=== PATIENT | female | born 1965 | race Caucasian/White ===

== ENCOUNTER 2022-09-17 11:50 | Observation (INO) ==
[2022-09-17] MEDS ORDERED: CEFEPIME 2,000 MG/20 ML VIAL IV STA (12:18)
[2022-09-17] MEDS ORDERED: ACETAMINOPHEN 1,000 MG/100 ML VIAL IV STA (12:18)
--- NOTE | 2022-09-17 12:22 | Emergency Department Note ---
Impression & Plan SOB (shortness of breath), Cellulitis, Rigors, Fever, Hyponatremia ED Provider Note NAME: MALIHA PHAM AGE: 56 SEX: F : 1965 ARRIVES VIA: Ambulance INFORMANT: [Patient] ED PROVIDER(S): [Moustapha Zimmer MD] CHIEF COMPLAINT: Illness HISTORY OF PRESENT ILLNESS: The patient is a 56-year-old female with a previous history of left leg cellulitis. She is currently at [facility]. The patient noticed chills, fever, body aches and tiredness since yesterday. She has been using Tylenol. This morning, the patient noticed a rash on her right lower extremity. She was evaluated by the medical staff there and sent to our hospital for further work- up. Of note, there has been no injury to the right lower extremity, the patient denies any history of diabetes. PMHx/PSHx: See Below SOCIAL HISTORY: See Below. PHYSICAL EXAM: GENERAL: Patient is in no acute distress. Shivering. HEENT: No acute trauma, normocephalic atraumatic, mucous membranes moist, no nasal congestion. NECK: No stridor, no adenopathy, no meningismus, trachea is midline. LUNGS: Coarse breath sounds bilaterally, no respiratory distress, no wheeze, dry cough noted. HEART: Mildly tachycardic, regular rhythm, no murmurs. ABDOMEN: Soft, nontender, bowel sounds positive, no peritonitis. EXTREMITIES: No cyanosis. There is erythema and warmth to the right lower extremity involving both the anterior and posterior aspect. It does not extend past the knee. No drainage NEUROLOGIC: Oriented x 3, no acute motor or sensory deficits, no focal weakness. SKIN: No rash, no jaundice, no diaphoresis. DIFFERENTIAL DIAGNOSIS: Sepsis, UTI, pyelonephritis, pneumonia, metabolic abnormality, electrolyte abnormality, cellulitis, bacteremia, as well as other pathologies. EMERGENCY DEPARTMENT COURSE/PROCEDURES: Prior/Outside records reviewed: EMS records. [facility] records. ECG per my interpretation: Indication was potential sepsis. The ECG shows a normal sinus rhythm with a rate of 91. There is no ST elevation, no PVCs. The QTc is 437. Continuous Cardiac Monitoring per my interpretation: An order was placed for continuous cardiac monitoring. The monitor shows a rate of 89 with normal sinus rhythm. MEDICAL DECISION MAKING: There is no leukocytosis or concerning anemia. There is a normal platelet count. Sodium somewhat low at 129, no renal failure. Lactic acid level is not elevated making severe sepsis less likely. No worrisome liver enzyme elevation. Procalcitonin level was elevated consistent with potential bacterial infection. ECG showed a normal sinus rhythm, and no obvious ST elevation. Cardiac enzyme testing x1 was not consistent with acute cardiac injury. Urinalysis showed contamination, no infection. COVID, influenza and RSV test were negative. Chest film did not show significant CHF per my review, there was no pneumonia. On exam, the patient did have a right lower extremity cellulitis. She was febrile and tachycardic. Patient received IV Tylenol, IV cefepime, IV saline--2 L were given. The patient is improved. She is much more comfortable. Her heart rate has decreased. She is no longer shaking with chills. I do think the cellulitis on exam has caused her presentation. I am concerned about the potential of bacteremia. Given her findings and presentation, I do think a hospital stay would be warranted. I spoke with the patient and case management, the on-call hospitalist was consulted. DISPOSITION: Patient's findings and presentation warrant a hospital stay. Past Med/Surg History Medical History Cellulitis Renal cancer Surgical History (Updated 09/17/22 @ 16:07 by Pool Lazcano MD) History of right nephrectomy Social History Smoking Status: Former smoker Tobacco Type: Cigarettes Feels Safe at Home: Yes Allergies Allergies Allergy/AdvReac Type Severity Reaction Status Date / Time No Known Allergies Allergy Verified 09/17/22 15:14 Home Meds Home Medications Medication Instructions Recorded Confirmed No Known Home Medications 09/17/22 09/17/22 Results & Data (ED) Vital Signs Vital Signs - 24 hr 09/17/22 11:35 09/17/22 11:35 09/17/22 12:18 Temperature 39.4 C H 39.4 C H Temperature Source Oral Oral Pulse Rate 105 H 104 H Pulse Rate from SpO2 Sensor Pulse Rhythm Regular Respiratory Rate 28 H 28 H Respiratory Effort / Characteristics Short of Breath Respiratory Depth Normal Respiratory Pattern Regular Blood Pressure 182/106 H Blood Pressure Mean 131 Pulse Oximetry 95 96 Oxygen Delivery Method Room Air Room Air Sepsis Recent Fever Within 48 Hours Yes Sepsis New/Unexplained Change in Mental Status No Sepsis Action Taken by Nursing Previously Notified 09/17/22 12:00 09/17/22 12:30 09/17/22 13:00 Temperature Temperature Source Pulse Rate 102 H 105 H 98 H Pulse Rate from SpO2 Sensor 100 H 105 H 99 H Pulse Rhythm Respiratory Rate 22 21 30 H Respiratory Effort / Characteristics Respiratory Depth Respiratory Pattern Blood Pressure Blood Pressure Mean Pulse Oximetry 96 94 96 Oxygen Delivery Method Sepsis Recent Fever Within 48 Hours Sepsis New/Unexplained Change in Mental Status Sepsis Action Taken by Nursing 09/17/22 13:09 09/17/22 13:09 09/17/22 13:30 Temperature Temperature Source Pulse Rate 101 H Pulse Rate from SpO2 Sensor 101 H Pulse Rhythm Respiratory Rate 31 H Respiratory Effort / Characteristics Respiratory Depth Respiratory Pattern Blood Pressure 133/70 124/72 Blood Pressure Mean 91 89 Pulse Oximetry 94 Oxygen Delivery Method Sepsis Recent Fever Within 48 Hours Sepsis New/Unexplained Change in Mental Status Sepsis Action Taken by Nursing 09/17/22 13:30 09/17/22 14:20 09/17/22 14:04 Temperature 37.2 C Temperature Source Oral Pulse Rate 93 H 91 H Pulse Rate from SpO2 Sensor 94 H 93 H Pulse Rhythm Respiratory Rate 23 26 H Respiratory Effort / Characteristics Respiratory Depth Respiratory Pattern Blood Pressure 124/72 Blood Pressure Mean 89 Pulse Oximetry 94 96 Oxygen Delivery Method Sepsis Recent Fever Within 48 Hours Sepsis New/Unexplained Change in Mental Status Sepsis Action Taken by Custodial Medications Current Medication List: was personally reviewed by me Laboratory Data Attestation: I reviewed the patient's lab results. 09/17/22 12:19 09/17/22 12:19 Lab Results 09/17/22 09/17/22 09/17/22 Range/Units 12:19 12:19 12:19 WBC 7.73 (4.8-10.8) K/ul RBC 4.25 (4.20-5.40) M/uL Hgb 12.1 (12.0-16.0) g/dl Hct 35.6 L (37.0-47.0) % MCV 83.8 (80.0-100.0) fL MCH 28.5 (25.0-34.0) pg MCHC 34.0 (32.0-36.0) g/dL RDW Std Deviation 41.3 (36.4-46.3) fL RDW Coeff of Diaz 13.4 (11.5-14.5) % Plt Count 159 (130-400) K/uL MPV 11.7 (9.4-12.4) fL Immature Gran % (Auto) 0.6 % Neut % (Auto) 86.1 % Lymph % (Auto) 9.6 % Clare % (Auto) 3.6 % Eos % (Auto) 0.0 % Baso % (Auto) 0.1 % Neut # (Auto) 6.65 H (1.40-6.50) K/uL Lymph # (Auto) 0.74 L (1.2-3.4) K/uL Clare # (Auto) 0.28 (0.11-0.59) K/uL Eos # (Auto) 0.00 (0-0.50) K/uL Baso # (Auto) 0.01 (0-0.2) K/uL Immature Gran # (Auto) 0.05 (0.01-0.20) K/uL Sodium 129 L (136-145) mmol/L Potassium 4.1 (3.5-5.1) mmol/L Chloride 98 (98-107) mmol/L Carbon Dioxide 26 (21-32) mmol/L Anion Gap 5 (3-11) BUN 10 (6-23) mg/dl Creatinine 0.99 (0.6-1.2) mg/dl Est Cr Clr Drug Dosing 69.4 ml/min Est GFR ( Amer) 74.4 ml/min Est GFR (Non-Af Amer) 64.2 ml/min BUN/Creatinine Ratio 10.1 (10-20) Glucose 154 H (70-99(Fasting)) mg/dl Lactate (0.4-2.0) mmol/L Calcium 10.0 (8.5-10.1) mg/dl Magnesium 1.8 (1.7-2.4) mg/dl Total Bilirubin 0.5 (0.2-1.0) mg/dl Direct Bilirubin 0.0 (0-0.2) mg/dl AST 19 (13-39) U/L ALT 20 (7-52) U/L Alkaline Phosphatase 83 (34-104) U/L Troponin I High Sens 9.7 (0-14) pg/ml Total Protein 7.7 (6.0-8.3) gm/dl Albumin 3.7 (3.4-5.0) gm/dl Procalcitonin 0.93 H (0-0.5) ng/ml Urine Color Urine Appearance (Clear) Urine pH (4.5-7.5) Ur Specific Winston (1.000-1.030) Urine Protein (Negative) Urine Glucose (UA) (Negative) Urine Ketones (Negative) Urine Blood (Negative) Urine Nitrite (Negative) Urine Bilirubin (Negative) Urine Urobilinogen (Negative) Ur Leukocyte Esterase (Negative) Urine WBC (Auto) (0-5) /hpf Urine RBC (Auto) (0-4) /hpf U Hyaline Cast (Auto) (0-5) /lpf U Epithel Cells (Auto) (0-5) /lpf Urine Bacteria (Auto) (Negative) SARS-CoV-2 (PCR) (Negative) Influenza Type A (PCR) (Neg) Influenza Type B (PCR) (Neg) RSV (RT-PCR) (Neg) 09/17/22 09/17/22 09/17/22 Range/Units 12:38 12:51 14:16 WBC (4.8-10.8) K/ul RBC (4.20-5.40) M/uL Hgb (12.0-16.0) g/dl Hct (37.0-47.0) % MCV (80.0-100.0) fL MCH (25.0-34.0) pg MCHC (32.0-36.0) g/dL RDW Std Deviation (36.4-46.3) fL RDW Coeff of Diaz (11.5-14.5) % Plt Count (130-400) K/uL MPV (9.4-12.4) fL Immature Gran % (Auto) % Neut % (Auto) % Lymph % (Auto) % Clare % (Auto) % Eos % (Auto) % Baso % (Auto) % Neut # (Auto) (1.40-6.50) K/uL Lymph # (Auto) (1.2-3.4) K/uL Clare # (Auto) (0.11-0.59) K/uL Eos # (Auto) (0-0.50) K/uL Baso # (Auto) (0-0.2) K/uL Immature Gran # (Auto) (0.01-0.20) K/uL Sodium (136-145) mmol/L Potassium (3.5-5.1) mmol/L Chloride (98-107) mmol/L Carbon Dioxide (21-32) mmol/L Anion Gap (3-11) BUN (6-23) mg/dl Creatinine (0.6-1.2) mg/dl Est Cr Clr Drug Dosing ml/min Est GFR ( Amer) ml/min Est GFR (Non-Af Amer) ml/min BUN/Creatinine Ratio (10-20) Glucose (70-99(Fasting)) mg/dl Lactate 1.1 (0.4-2.0) mmol/L Calcium (8.5-10.1) mg/dl Magnesium (1.7-2.4) mg/dl Total Bilirubin (0.2-1.0) mg/dl Direct Bilirubin (0-0.2) mg/dl AST (13-39) U/L ALT (7-52) U/L Alkaline Phosphatase (34-104) U/L Troponin I High Sens (0-14) pg/ml Total Protein (6.0-8.3) gm/dl Albumin (3.4-5.0) gm/dl Procalcitonin (0-0.5) ng/ml Urine Color Yellow Urine Appearance Turbid A (Clear) Urine pH 7.0 (4.5-7.5) Ur Specific Winston 1.023 (1.000-1.030) Urine Protein 2+ H (Negative) Urine Glucose (UA) Negative (Negative) Urine Ketones Negative (Negative) Urine Blood Negative (Negative) Urine Nitrite Negative (Negative) Urine Bilirubin Negative (Negative) Urine Urobilinogen Negative (Negative) Ur Leukocyte Esterase 1+ H (Negative) Urine WBC (Auto) 10-30 H (0-5) /hpf Urine RBC (Auto) 0-4 (0-4) /hpf U Hyaline Cast (Auto) 1-5 (0-5) /lpf U Epithel Cells (Auto) >30 H (0-5) /lpf Urine Bacteria (Auto) 1+ H (Negative) SARS-CoV-2 (PCR) NEGATIVE (Negative) Influenza Type A (PCR) Negative (Neg) Influenza Type B (PCR) Negative (Neg) RSV (RT-PCR) Negative (Neg) Administered Medications Discontinued Medications Sodium Chloride (Nss 1000ml) 1,000 mls @ 999 mls/hr IV .Q1H1M ALVERTO Stop: 09/17/22 13:30 Last Infusion: 09/17/22 13:56 Dose: 0 mls/hr Documented By: Admin: 09/17/22 12:46 Dose: 999 mls/hr Documented By: FAIZA Cefepime HCl (Maxipime) 2,000 mg in 20 mls @ 5 mls/min IV NOW STA; Protocol Stop: 09/17/22 12:21 Last Admin: 09/17/22 13:06 Dose: 5 mls/min Documented By: FAIZA Acetaminophen (Ofirmev) 1,000 mg in 100 mls @ 400 mls/hr IV NOW STA Stop: 09/17/22 12:32 Last Infusion: 09/17/22 13:56 Dose: 0 mls/hr Documented By: Admin: 09/17/22 12:46 Dose: 400 mls/hr Documented By: RDD Sodium Chloride (Nss 1000ml) 1,000 mls @ 999 mls/hr IV .Q1H1M ONE Stop: 09/17/22 14:17 Last Infusion: 09/17/22 15:38 Dose: 0 mls/hr Documented By: Admin: 09/17/22 13:54 Dose: 999 mls/hr Documented By: FAIZA Imaging Data Radiologist's Impression: Chest X-Ray 09/17/22 12:18 XR chest 1V portable HISTORY: Sepsis COMPARISON: None. FINDINGS: No pneumothorax. No pleural effusions. The cardiac silhouette is mildly enlarged. There are low lung volumes. Mild pulmonary vascular congestion may be technical due to the patient's body habitus. Otherwise, no focal lung consolidations to suggest a pneumonia. IMPRESSION: 1. Mild cardiac megaly. 2. Mild central pulmonary vascular congestion may be technical. ACT 112: Negative or not required by law. Electronically signed by: Kareem Gaspar M.D. 09/17/2022 12:43 PM Discharge Plan Visit Data Chief Complaint: Illness ED Provider: Moustapha Zimmer Discharge Problem: SOB (shortness of breath), Cellulitis, Rigors, Fever, Hyponatremia Patient Disposition: Admitted As Inpatient Condition: Fair Forms Stand Alone Forms: [facility] [employer] Prescriptions Prescriptions: No Action No Known Home Medications Referrals Referrals: PCP,NO [Physician] -
[2022-09-17] MEDS ORDERED: SODIUM CHLORIDE 0.9% 1000ML 1,000 ML IV SCH (12:30)
--- NOTE | 2022-09-17 12:44 | XRay Report ---
XR chest 1V portable HISTORY: Sepsis COMPARISON: None. FINDINGS: No pneumothorax. No pleural effusions. The cardiac silhouette is mildly enlarged. There are low lung volumes. Mild pulmonary vascular congestion may be technical due to the patient's body habi tus. Otherwise, no focal lung consolidations to suggest a pneumonia. IMPRESSION: 1. Mild cardiac megaly. 2. Mild central pulmonary vascular congestion may be technical. ACT 112: Negative or not required by law. Electronically signed by: Kareem Gaspar M.D. 09/17/2022 12:43 PM
[2022-09-17 12:49] LABS: Basophils # (auto) 0.01 K/uL (0-0.2); Basophils % (auto) 0.1 %; Hematocrit (blood only) 35.6 % (37.0-47.0); Hemoglobin 12.1 g/dl (12.0-16.0); Immature Granulocytes # (auto) 0.05 K/uL (0.01-0.20); Immature Granulocytes % (auto) 0.6 %; Lymphocytes # (auto) 0.74 K/uL (1.2-3.4); Lymphocytes % (auto) 9.6 %; Mean Corpuscular Hemoglobin 28.5 pg (25.0-34.0); Mean Corpuscular Volume 83.8 fL (80.0-100.0); Mean Platelet Volume 11.7 fL (9.4-12.4); Monocytes # (auto) 0.28 K/uL (0.11-0.59); Monocytes % (auto) 3.6 %; Neutrophils # (auto) 6.65 K/uL (1.40-6.50); Neutrophils % (auto) 86.1 %; Platelet Count 159 K/uL (130-400); RDW Coefficient of Variation 13.4 % (11.5-14.5); RDW Standard Deviation 41.3 fL (36.4-46.3); Red Blood Count 4.25 M/uL (4.20-5.40); White Blood Count 7.73 K/ul (4.8-10.8)
[2022-09-17 13:09] LABS: Albumin Level 3.7 gm/dl (3.4-5.0); BUN Creatinine Ratio 10.1 (10-20); Bilirubin,Total 0.5 mg/dl (0.2-1.0); Creatinine Clr Calc Pharmacy 69.4 ml/min; Est GFR (African American) 74.4 ml/min; Est GFR (Non-African American) 64.2 ml/min; Magnesium 1.8 mg/dl (1.7-2.4); Potassium 4.1 mmol/L (3.5-5.1); Total Protein 7.7 gm/dl (6.0-8.3)
[2022-09-17 13:14] LABS: Troponin I High Sensitivity 9.7 pg/ml (0-14)
[2022-09-17] MEDS ORDERED: SODIUM CHLORIDE 0.9% 1000ML 1,000 ML IV ONE (13:17)
[2022-09-17 14:30] LABS: Influenza A virus by PCR Negative (Neg); Influenza B virus by PCR Negative (Neg); RSV by PCR Negative (Neg); SARS CoV2 RNA(COVID-19) Ceph NEGATIVE (Negative)
[2022-09-17 14:46] LABS: Appearance Urine Turbid (Clear); Bacteria Urine Automated 1+ (Negative); Bilirubin Urine Negative (Negative); Blood Urine Negative (Negative); Color Urine Yellow; Epithelial Cell Urine Auto >30 /lpf (0-5); Glucose Urine UA Negative (Negative); Ketones Urine Negative (Negative); Leukocyte Esterase Urine 1+ (Negative); Nitrite Urine Negative (Negative); Protein Urine 2+ (Negative); RBC Urine Automated 0-4 /hpf (0-4); Specific Gravity Urine 1.023 (1.000-1.030); Urobilinogen Urine Negative (Negative)
--- NOTE | 2022-09-17 16:07 | Hospitalist Consultation ---
Date of Consultation September 17, 2022 Assessment & Plan (1) Cellulitis: History of Present Illness History of Present Illness Not gotten up for last 2 days. Worse on left leg. This morning when she woke up right LE, just noticed this morning. 2 days felt like she had the flu. Generalized weakness, chills. Took - Bactrim Jul 29 - Aug 07 - additional 4 days 800/160 BID. Allergies Allergy/AdvReac Type Severity Reaction Status Date / Time No Known Allergies Allergy Verified 09/17/22 15:14 Home Medications Medication Instructions Recorded Confirmed Type No Known Home Medications 09/17/22 09/17/22 History Patient History Medical History (Updated 09/17/22 @ 16:07 by Pool Lazcano MD) Renal cancer Surgical History (Updated 09/17/22 @ 16:07 by Pool Lazcano MD) History of right nephrectomy Social History Smoking Status: Former smoker Tobacco Type: Cigarettes Feels Safe at Home: Yes Review of Systems Review of Systems: All systems reviewed & are unremarkable except as noted in HPI & below Results & Data Results & Data ([place]) Vital Signs (Past 12 Hours) Vital Signs Temp Pulse Resp BP Pulse Ox O2 Del Method 09/17/22 14:04 91 H 26 H 124/72 96 09/17/22 14:20 37.2 C 09/17/22 13:30 93 H 23 94 09/17/22 13:30 124/72 09/17/22 13:09 133/70 09/17/22 13:09 101 H 31 H 94 09/17/22 13:00 98 H 30 H 96 09/17/22 12:30 105 H 21 94 09/17/22 12:00 102 H 22 96 09/17/22 12:18 104 H 28 H 96 Room Air 09/17/22 11:35 39.4 C H 09/17/22 11:35 39.4 C H 105 H 28 H 182/106 H 95 Room Air Laboratory Results Abnormal lab results 09/17/22 09/17/22 09/17/22 Range/Units 12:19 12:19 12:19 Hct 35.6 L (37.0-47.0) % Neut # (Auto) 6.65 H (1.40-6.50) K/uL Lymph # (Auto) 0.74 L (1.2-3.4) K/uL Sodium 129 L (136-145) mmol/L Glucose 154 H (70-99(Fasting)) mg/dl Procalcitonin 0.93 H (0-0.5) ng/ml Urine Appearance (Clear) Urine Protein (Negative) Ur Leukocyte Esterase (Negative) Urine WBC (Auto) (0-5) /hpf U Epithel Cells (Auto) (0-5) /lpf Urine Bacteria (Auto) (Negative) 09/17/22 Range/Units 14:16 Hct (37.0-47.0) % Neut # (Auto) (1.40-6.50) K/uL Lymph # (Auto) (1.2-3.4) K/uL Sodium (136-145) mmol/L Glucose (70-99(Fasting)) mg/dl Procalcitonin (0-0.5) ng/ml Urine Appearance Turbid A (Clear) Urine Protein 2+ H (Negative) Ur Leukocyte Esterase 1+ H (Negative) Urine WBC (Auto) 10-30 H (0-5) /hpf U Epithel Cells (Auto) >30 H (0-5) /lpf Urine Bacteria (Auto) 1+ H (Negative) PG Care Time/CCT Total # of Minutes Spent Total Time Spent with Patient: Total time spent is greater than 50% in coordination of care (as documented) at patient's floor/unit and/or counseling patient: Coding Diagnoses Cellulitis L03.90
[2022-09-17] MEDS ORDERED: cefTRIAXone SODIUM 2,000 MG/70 ML BAG IV STA (16:15)
--- NOTE | 2022-09-17 16:15 | History & Physical Report ---
Date of Service September 17, 2022 Assessment & Plan (1) Cellulitis: Plan: Temp 39.4 C. Elevated procalcitonin. Lactate 1.1 Patient does not appear septic on exam Cefazolin 1g q8h. Monitor for improvement. If no significant change by tomorrow recommend adding MRSA coverage due to improvement with Bactrim on prior cellulitis Follow-up blood cultures (2) Acute hyponatremia: Plan: Suspect due to poor intake NSS given in the ER Repeat to see if she requires further NSS Plan VTE Prophylaxis - Lovenox 40mg SQ BID Diet - regular Disposition - observation status to med/surg Admission and Anticipated Discharge Date Admission Date: September 17, 2022 History of Present Illness Chief Complaint: Right leg swelling and pain Primary Care Provider: FELICITAS Sis Flores is a 56 year old female who presents to the ER with right leg swelling and erythema. She reports feeling generally unwell for the last 2 days with generalized weakness, chills and she thought she had the flu. She reports normally able to move much for the last 2 days. This morning she woke up with right lower extremity erythema and swelling. Due to her overall clinical status was brought to the emergency room for further evaluation. She reports having a similar infection on her left leg for which she took Bactrim from July 29 to August 07 with good resolution. Allergies Allergy/AdvReac Type Severity Reaction Status Date / Time No Known Allergies Allergy Verified 09/17/22 15:14 Home Medications Medication Instructions Recorded Confirmed Type No Known Home Medications 09/17/22 09/17/22 History Past Med/Surg History Medical History Cellulitis Renal cancer Surgical History History of right nephrectomy Social History Smoking Status: Former smoker Tobacco Type: Cigarettes Cigarettes Per Day: quit in February 2022; Do You Dip or Chew Tobacco: No; Hx Alcohol Use: No Hx Substance Use: No Preferred Language: Pashto Communication Ability: Effective Forestry Professor Required: No Beliefs That Will Affect Care: None Current Living Situation: Other Feels Safe at Home: Yes Review of Systems Review of Systems: All systems reviewed & are unremarkable except as noted in HPI & below Physical Exam Constitutional: WD/WN, vitals as above Respiratory: normal respiratory effort, lungs clear to auscultation Cardiovascular: RRR, no murmur, no edema Gastrointestinal (Abdomen): normal bowel sounds, soft, nontender, no hepatosplenomegaly Musculoskeletal: no cyanosis or clubbing, extremities motor strength 5/5 Skin: Erythema warmth and swelling to right lower extremity from knee to ankle -area marked Neurologic: moves all extremities and awake; not confused Psychiatric: A+Ox3, euthymic affect Results & Data Results & Data ([facility]) Vital Signs (Past 12 Hours) Vital Signs Temp Pulse Resp BP Pulse Ox O2 Del Method 09/17/22 14:04 91 H 26 H 124/72 96 09/17/22 14:20 37.2 C 09/17/22 13:30 93 H 23 94 09/17/22 13:30 124/72 09/17/22 13:09 133/70 09/17/22 13:09 101 H 31 H 94 09/17/22 13:00 98 H 30 H 96 09/17/22 12:30 105 H 21 94 09/17/22 12:00 102 H 22 96 09/17/22 12:18 104 H 28 H 96 Room Air 09/17/22 11:35 39.4 C H 09/17/22 11:35 39.4 C H 105 H 28 H 182/106 H 95 Room Air Laboratory Results Abnormal lab results 09/17/22 09/17/22 09/17/22 Range/Units 12:19 12:19 12:19 Hct 35.6 L (37.0-47.0) % Neut # (Auto) 6.65 H (1.40-6.50) K/uL Lymph # (Auto) 0.74 L (1.2-3.4) K/uL Sodium 129 L (136-145) mmol/L Glucose 154 H (70-99(Fasting)) mg/dl Procalcitonin 0.93 H (0-0.5) ng/ml Urine Appearance (Clear) Urine Protein (Negative) Ur Leukocyte Esterase (Negative) Urine WBC (Auto) (0-5) /hpf U Epithel Cells (Auto) (0-5) /lpf Urine Bacteria (Auto) (Negative) 09/17/22 09/17/22 Range/Units 14:16 20:16 Hct (37.0-47.0) % Neut # (Auto) (1.40-6.50) K/uL Lymph # (Auto) (1.2-3.4) K/uL Sodium 131 L (136-145) mmol/L Glucose 167 H (70-99(Fasting)) mg/dl Procalcitonin (0-0.5) ng/ml Urine Appearance Turbid A (Clear) Urine Protein 2+ H (Negative) Ur Leukocyte Esterase 1+ H (Negative) Urine WBC (Auto) 10-30 H (0-5) /hpf U Epithel Cells (Auto) >30 H (0-5) /lpf Urine Bacteria (Auto) 1+ H (Negative) Diagnostic Findings XR chest 1V portable HISTORY: Sepsis COMPARISON: None. FINDINGS: No pneumothorax. No pleural effusions. The cardiac silhouette is mildly enlarged. There are low lung volumes. Mild pulmonary vascular congestion may be technical due to the patient's body habitus. Otherwise, no focal lung consolidations to suggest a pneumonia. IMPRESSION: 1. Mild cardiac megaly. 2. Mild central pulmonary vascular congestion may be technical. Medications Administered ER medications given: Normal saline 1 L bolus Cefepime 2 g IV Acetaminophen 1 g IV Normal saline 1 L bolus ECG Rate (beats per minute): 91 Rhythm: normal sinus Findings: no acute ischemic change Comparison ECG Date: no prior available Code Status & VTE Plan Code Status Full VTE Prophylaxis Plan VTE Prophylaxis will be ordered: Yes PG Care Time/CCT Total # of Minutes Spent Total Time Spent with Patient: Total time spent is greater than 50% in coordination of care (as documented) at patient's floor/unit and/or counseling patient: Coding Level of Care Code 94964 INT INP/OBS CARE 2/55MIN Diagnoses Cellulitis L03.90 Acute hyponatremia E87.1
[2022-09-17] MEDS ORDERED: ACETAMINOPHEN 325 MG TAB PO PRN (17:35)
[2022-09-17] MEDS: ceFAZolin 1000MG 1,000 MG/7.5 ML SYR IV SCH (19:58)
[2022-09-17] MEDS: ENOXAPARIN INJ 40 MG/0.4 ML SYR SQ SCH (20:03)
[2022-09-17 20:50] LABS: BUN Creatinine Ratio 11.7 (10-20); Calcium 9.4 mg/dl (8.5-10.1); Creatinine Clr Calc Pharmacy 65.3 ml/min; Est GFR (African American) 70.9 ml/min; Est GFR (Non-African American) 61.1 ml/min; Potassium 4.2 mmol/L (3.5-5.1)
[2022-09-17] MEDS ORDERED: IBUPROFEN 600 MG TAB PO PRN (23:22)
[2022-09-17] MEDS ORDERED: ACETAMINOPHEN 500 MG TAB PO ONE (23:43)
[2022-09-18] MEDS: SODIUM CHLORIDE 0.9% 1000ML 1,000 ML IV SCH ×2 (00:54→08:37)
[2022-09-18] MEDS: ceFAZolin 1000MG 1,000 MG/7.5 ML SYR IV SCH ×3 (03:41→19:59)
[2022-09-18] MEDS: ACETAMINOPHEN 500 MG TAB PO PRN ×2 (06:36→20:00)
[2022-09-18 07:44] LABS: Hematocrit (blood only) 31.2 % (37.0-47.0); Hemoglobin 10.7 g/dl (12.0-16.0); Mean Corpuscular Hemoglobin 28.3 pg (25.0-34.0); Mean Corpuscular Hgb Conc 34.3 g/dL (32.0-36.0); Mean Corpuscular Volume 82.5 fL (80.0-100.0); Mean Platelet Volume 11.5 fL (9.4-12.4); Platelet Count 120 K/uL (130-400); RDW Coefficient of Variation 13.4 % (11.5-14.5); RDW Standard Deviation 40.4 fL (36.4-46.3); Red Blood Count 3.78 M/uL (4.20-5.40); White Blood Count 5.18 K/ul (4.8-10.8)
[2022-09-18 07:50] LABS: Calcium 9.2 mg/dl (8.5-10.1); Creatinine Clr Calc Pharmacy 73.1 ml/min; Est GFR (African American) 81.2 ml/min; Est GFR (Non-African American) 70.1 ml/min; Potassium 3.7 mmol/L (3.5-5.1)
[2022-09-18 08:01] LABS: Basophils # (auto) 0.02 K/uL (0-0.2); Basophils % (auto) 0.4 %; Immature Granulocytes # (auto) 0.01 K/uL (0.01-0.20); Immature Granulocytes % (auto) 0.2 %; Lymphocytes # (auto) 0.73 K/uL (1.2-3.4); Lymphocytes % (auto) 14.1 %; Monocytes # (auto) 0.29 K/uL (0.11-0.59); Monocytes % (auto) 5.6 %; Neutrophils # (auto) 4.13 K/uL (1.40-6.50); Neutrophils % (auto) 79.7 %
[2022-09-18] MEDS: ENOXAPARIN INJ 40 MG/0.4 ML SYR SQ SCH ×2 (08:33→19:59)
[2022-09-18 10:08] LABS: Estimated Average Glucose 131 mg/dl; Hemoglobin A1C 6.2 % (4.5-5.6)
--- NOTE | 2022-09-18 13:45 | Hospitalist Progress Note ---
Date of Service September 18, 2022 Assessment & Plan (1) Cellulitis: Plan: Admitted on account of right lower extremity warmth and redness Diagnosed with cellulitis, Improving area of redness Now aferbrile, wbc wnl Blood cultures negative so far Continue Cefazolin 1g q8h. May transition to PO antibiotics tomorrow (2) Acute hyponatremia: Plan: Etiology is uncertain No improvement with IV saline will obtain urine lytes and osmolarity Plan VTE Prophylaxis - Lovenox 40mg SQ BID Diet - regular Disposition - observation status to med/surg Admission and Anticipated Discharge Date Admission Date: September 17, 2022 Subjective patient seen and examined, feels slightly better, denies chills or fever Review of Systems Review of Systems: All systems reviewed are negative, apart from the ones contained in the history. Physical Exam Physical Exam: The patient is awake, alert and oriented 3, well developed and well nourished, normocephalic and atraumatic, lying in bed and in no acute distress. HEENT--PERRL, EOMI, mucous membranes and oropharynx mildly dry Neck--supple. No JVD. No bruits. Thyroid normal, trachea midline, no adenopathy. Heart--normal S1 and S2. No murmurs, rubs or gallops. Lungs--clear bilaterally, no respiratory distress, no accessory muscle use. Abdomen--normal bowel sounds and soft. Mild epigastric and left sided abdominal pain Extremities--no cyanosis or clubbing. No edema. Dermatologic--right lower extremity cellulitis Neurologic--cranial nerves II through XII grossly intact. Rheumatologic--normal range of motion. Psychiatric--normal affect. Results & Data Results & Data ([facility]) Vital Signs (Past 12 Hours) Vital Signs Temp Pulse Resp BP Pulse Ox O2 Del Method 09/18/22 08:40 Room Air 09/18/22 08:16 98.8 F 82 18 105/65 94 Room Air 09/18/22 06:35 100.9 F H 87 PG Care Time/CCT Total # of Minutes Spent Total Time Spent with Patient: Total time spent is greater than 50% in coordination of care (as documented) at patient's floor/unit and/or counseling patient: Coding Level of Care Code 81186 SUB INP/OBS CARE 2/35MIN Diagnoses Cellulitis L03.90 Acute hyponatremia E87.1 Time Spent (min) 35
[2022-09-19] MEDS: ceFAZolin 1000MG 1,000 MG/7.5 ML SYR IV SCH ×2 (03:11→10:34)
--- NOTE | 2022-09-19 05:31 | Electrocardiogram Report ---
Test Reason : Blood Pressure : / mmHG Vent. Rate : 091 BPM Atrial Rate : 091 BPM P-R Int : 142 ms QRS Dur : 088 ms QT Int : 356 ms P-R-T Axes : 022 022 036 degrees QTc Int : 437 ms Poor data quality, interpretation may be adversely affected Normal sinus rhythm Normal ECG No previous ECGs available Confirmed by Paul Cox ([id number]) on 09/19/2022 5:31:21 AM Referred By: Sis POLK Confirmed By:Paul Cox
[2022-09-19] MEDS: ENOXAPARIN INJ 40 MG/0.4 ML SYR SQ SCH (08:19)
[2022-09-19 10:05] LABS: Hematocrit (blood only) 29.6 % (37.0-47.0); Hemoglobin 10.1 g/dl (12.0-16.0); Mean Corpuscular Hemoglobin 28.5 pg (25.0-34.0); Mean Corpuscular Hgb Conc 34.1 g/dL (32.0-36.0); Mean Corpuscular Volume 83.4 fL (80.0-100.0); Mean Platelet Volume 11.7 fL (9.4-12.4); Platelet Count 141 K/uL (130-400); RDW Coefficient of Variation 13.5 % (11.5-14.5); RDW Standard Deviation 41.7 fL (36.4-46.3); Red Blood Count 3.55 M/uL (4.20-5.40); White Blood Count 3.84 K/ul (4.8-10.8)
[2022-09-19 10:35] LABS: BUN Creatinine Ratio 11.6 (10-20); Calcium 9.4 mg/dl (8.5-10.1); Creatinine Clr Calc Pharmacy 70.8 ml/min; Est GFR (African American) 78.2 ml/min; Est GFR (Non-African American) 67.4 ml/min; Potassium 3.5 mmol/L (3.5-5.1)
--- NOTE | 2022-09-19 11:55 | Discharge Summary ---
Date of Service September 19, 2022 Admission HPI Per Admitting Provider Dariana Flores is a 56 year old female who presents to the ER with right leg swelling and erythema. She reports feeling generally unwell for the last 2 days with generalized weakness, chills and she thought she had the flu. She reports normally able to move much for the last 2 days. This morning she woke up with right lower extremity erythema and swelling. Due to her overall clinical status was brought to the emergency room for further evaluation. She reports having a similar infection on her left leg for which she took Bactrim from July 29 to August 07 with good resolution. Principal Diagnosis right leg cellulitis Discharge Exam The patient is awake, alert and oriented 3, well developed and well nourished, normocephalic and atraumatic, lying in bed and in no acute distress. HEENT--PERRL, EOMI, mucous membranes and oropharynx mildly dry Neck--supple. No JVD. No bruits. Thyroid normal, trachea midline, no adenopathy. Heart--normal S1 and S2. No murmurs, rubs or gallops. Lungs--clear bilaterally, no respiratory distress, no accessory muscle use. Abdomen--normal bowel sounds and soft. Mild epigastric and left sided abdominal pain Extremities--no cyanosis or clubbing. No edema. Dermatologic--right lower extremity cellulitis Neurologic--cranial nerves II through XII grossly intact. Rheumatologic--normal range of motion. Psychiatric--normal affect. Discharge Data Allergies Allergy/AdvReac Type Severity Reaction Status Date / Time No Known Allergies Allergy Verified 09/17/22 15:14 Consultations 09/17/22 14:57 ED Decision to Admit Stat Hospital Course (1) Cellulitis: Admitted on account of right lower extremity warmth and redness Diagnosed with cellulitis, Improving area of redness Now aferbrile, wbc wnl Blood cultures negative so far transition to PO antibiotics, cephalexin 500mg BID for 5 days (2) Acute hyponatremia: Etiology is uncertain No improvement with IV saline will obtain urine lytes and osmolarity Plan VTE Prophylaxis - Lovenox 40mg SQ BID Diet - regular Disposition - observation status to med/surg Total Time Total Time Spent Total Time Spent (In Minutes): 35 Discharge Plan Discharge Items [facility] Disposition[facility] Reason For Visit: CELLULITIS Discharge Diagnosis: cellulitis Condition on Discharge: Fair Activity: Resume your previous activity Non-emergency contact: Primary Care Provider Call non-emergency contact if: you have any medication questions Follow-up/Referrals: Sis POLK [Primary Care Provider] - Diet: Regular Addtl Attending Provider Instructions: please make appointment to follow up with your pcp Pending Studies at Discharge: No Skilled Items Patient informed of condition?: Yes DNR: No Discharge Level of Care: Other Communicable Disease: No Discharge Prognosis: Stable Lines: None Urinary Catheter: No Medications and DC Order Prescriptions: No Action No Known Home Medications Krames/Other Patient Handouts: Prediabetes, 5 Steps for Eating Healthier Admission Data Admit Date/Time: 09/17/22 16:14 Attending Provider: Luis Carrillo Admit Provider: Pool Lazcano Primary Care Provider: Sis POLK Other Providers: Pool Lazcano Other Interventions: Discharge Summary Assessment (RN) Last Done: 09/19/22 11:10 Coding Level of Care Code HOSP INP/OBS DISCH >30 MIN Diagnoses Cellulitis L03.90 Acute hyponatremia E87.1 Time Spent (min) 35
== END 2022-09-19 15:31 ==
LOC: 3W 11:50 → ED 11:50 → SUATTDRO 16:14 → 3W 18:00